=== PATIENT | male | born 1990 | race American Indian/Alaskan Native ===

== ENCOUNTER 2020-02-04 02:41 | Emergency (ER) | payer MEDICARE ==
[2020-02-04 05:14] LABS: BUN/Creatinine Ratio 36; Blood Urea Nitrogen 18 mg/dL (9-20); Calcium 9.9 mg/dL (8.4-10.2); Hemolysis Index 28
[2020-02-04 05:19] LABS: Basophils # (Auto) 0.1 K/mm3 (0.0-0.1); Basophils % (Auto) 0.4 % (0.0-1.8); Eosinophils % (Auto) 0.3 % (0.0-4.3); Hematocrit 42.3 % (35.5-45.6); Hemoglobin 14.1 gm/dl (11.8-15.2); Lymphocytes # (Auto) 1.7 K/mm3 (1.2-5.4); Lymphocytes % (Auto) 11.7 % (13.4-35.0); Mean Corpuscular HGB Conc 33 % (32-34); Mean Corpuscular Volume 96 fl (84-94); Monocytes # (Auto) 1.3 K/mm3 (0.0-0.8); Red Blood Count 4.41 M/mm3 (3.65-5.03); Red Cell Distribution Width 13.3 % (13.2-15.2)
[2020-02-04 05:54] LABS: Platelet Count 118 K/mm3 (140-440)
[2020-02-04 05:56] LABS: Amphetamine Screen,Urine PRESUMPTIVE NEGATIVE; Benzodiazepines Screen,Urine PRESUMPTIVE NEGATIVE; Cannabinoid Screen,Urine PRESUMPTIVE NEGATIVE; Cocaine Screen,Urine PRESUMPTIVE NEGATIVE; Methadone Screen,Urine PRESUMPTIVE NEGATIVE; Opiate Screen,Urine PRESUMPTIVE NEGATIVE
[2020-02-04 05:57] LABS: Bilirubin,Urine NEG (Negative); Blood,Urine NEG (Negative); Color,Urine Yellow (Yellow); Mucus,Urine 3+ /HPF; Urobilinogen,Urine < 2.0 mg/dL (<2.0)
--- NOTE | 2020-02-04 06:16 | Emergency Department Report ---
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 He was found running naked this morning by police. He was placed in a blanket and arrived at this facility otherwise completely naked. At the time of my encounter, the patient is not shivering. He is cooperative. He is unable to provide a lot of specific information. Apparently he has a history of bipolar disorder treated with lithium and seizures previously prescribed divalproic acid. When asked that the patient is taking Keppra EMS is to the affirmative. However I do not think he is in accurate source of any medical history. He is not agitated and cooperative at the time of my evaluation. MD Complaint: other -: unknown Quality: intermittent Improves With: none Context: not taking psychiatric Associated Symptoms: denies other symptoms Treatments Prior to Arrival: none - Related Data Home Medications Medication Instructions Recorded Confirmed Last Taken ALPRAZolam [Xanax TAB] 2 mg PO DAILY 08/12/14 08/12/14 08/11/14 2 MG Folic Acid [Folvite] 1 mg PO DAILY 08/12/14 08/12/14 08/11/14 1 MG [employer] Carbonate [[employer] 450 mg PO DAILY 08/12/14 08/12/14 08/11/14 Carbonate ER] 450 MG Trazodone HCl [traZODone] 50 mg PO DAILY 08/12/14 08/12/14 08/11/14 50 MG Previous Rx's Medication Instructions Recorded Last Taken Type Divalproex Dr [Depakote Dr] 250 mg PO DAILY #60 tablet 08/12/14 Unknown Rx Zolpidem [Ambien] 5 mg PO QHS PRN #7 tablet 09/11/14 Unknown Rx Ibuprofen [Motrin 800 MG tab] 800 mg PO Q8HR PRN #30 tablet 10/22/14 Unknown Rx Allergies Allergy/AdvReac Type Severity Reaction Status Date / Time No Known Allergies Allergy Unverified 09/30/13 17:10 ED Review of Systems ROS: Stated complaint: CONFUSION Other details as noted in HPI Constitutional: denies: chills, fever Eyes: denies: eye pain, vision change ENT: denies: ear pain, throat pain Respiratory: denies: cough, shortness of breath Cardiovascular: denies: chest pain, palpitations Endocrine: no symptoms reported Gastrointestinal: denies: abdominal pain, nausea, diarrhea Genitourinary: denies: urgency, dysuria Musculoskeletal: denies: back pain, arthralgia Skin: denies: rash, lesions Neurological: denies: headache, weakness Psychiatric: as per HPI Hematological/Lymphatic: denies: easy bleeding, easy bruising ED Past Medical Hx - Past Medical History Previous Medical History?: Yes Hx Headaches / Migraines: Yes Hx Seizures: Yes Hx Psychiatric Treatment: Yes (bipolar) Additional medical history: TBI - Surgical History Additional Surgical History: brain surgery - Social History Smoking Status: Unknown if ever smoked - Medications Home Medications: Home Medications Medication Instructions Recorded Confirmed Last Taken Type ALPRAZolam [Xanax TAB] 2 mg PO DAILY 08/12/14 08/12/14 08/11/14 History [address] [Depakote Dr] 250 mg PO DAILY #60 tablet 08/12/14 Unknown Rx Folic Acid [Folvite] 1 mg PO DAILY 08/12/14 08/12/14 08/11/14 History 1 MG [employer] Carbonate [[employer] 450 mg PO DAILY 08/12/14 08/12/14 08/11/14 History Carbonate ER] 450 MG Trazodone HCl [traZODone] 50 mg PO DAILY 08/12/14 08/12/14 08/11/14 History 50 MG Zolpidem [Ambien] 5 mg PO QHS PRN #7 tablet 09/11/14 Unknown Rx Ibuprofen [Motrin 800 MG tab] 800 mg PO Q8HR PRN #30 tablet 10/22/14 Unknown Rx ED Physical Exam - General Limitations: Physical Limitation General appearance: alert, in no apparent distress - Head Head exam: Present: normocephalic, other (Previous craniotomy well-healed) - Eye Eye exam: Present: normal appearance, PERRL, EOMI. Absent: scleral icterus - ENT ENT exam: Present: mucous membranes moist - Neck Neck exam: Present: normal inspection. Absent: tenderness, meningismus - Respiratory Respiratory exam: Present: normal lung sounds bilaterally. Absent: respiratory distress - Cardiovascular Cardiovascular Exam: Present: regular rate, normal rhythm. Absent: systolic murmur, diastolic murmur, rubs, gallop - GI/Abdominal GI/Abdominal exam: Present: soft, normal bowel sounds. Absent: distended, tenderness, guarding, rebound - Rectal Rectal exam: Present: deferred - Extremities Exam Extremities exam: Present: normal inspection - Back Exam Back exam: Present: normal inspection - Neurological Exam Neurological exam: Present: alert, oriented X3, CN II-XII intact. Absent: motor sensory deficit - Psychiatric Psychiatric exam: Present: normal affect, normal mood - Skin Skin exam: Present: warm, dry, intact, normal color. Absent: rash ED Course Vital Signs 02/04/20 02/04/20 02/04/20 03:06 03:18 08:17 Temperature 97.5 F L 98.0 F Pulse Rate 85 68 Respiratory 18 18 20 Rate Blood Pressure 111/63 120/76 [Left] O2 Sat by Pulse 98 98 100 Oximetry - Reevaluation(s) Reevaluation #1: The patient was placed under 1013. Thus far he has not required any chemical sedation. He was placed back on his divalproic acid. I will defer reinitiation of lithium and/or other psychiatric medications to appropriate staff. Mental health consult is yet pending. I assume the patient will be placed in a psychiatric facility. Chest x-ray and CT of the head showed nothing acute. A Covid PCR was obtained as this appears to be frequently required by receiving facilities. There is no clinical suspicion of Covid infection. 02/04/20 14:30 ED Medical Decision Making - Lab Data Result diagrams: 02/04/20 04:02 02/04/20 04:02 Laboratory Results - last 24 hr 02/04/20 02/04/20 02/04/20 04:02 04:02 04:02 WBC RBC Hgb Hct MCV MCH MCHC RDW Plt Count Lymph % (Auto) [place] % (Auto) Eos % (Auto) Baso % (Auto) Lymph # (Auto) [place] # (Auto) Eos # (Auto) Baso # (Auto) Seg Neutrophils % Seg Neutrophils # Sodium 142 Potassium 3.9 Chloride TNR Carbon Dioxide 29 Anion Gap 14 BUN 18 Creatinine 0.5 L Estimated GFR > 60 BUN/Creatinine Ratio 36 Glucose 88 Calcium 9.9 Urine Color Urine Turbidity Urine pH Ur Specific [place] Urine Protein Urine Glucose (UA) Urine Ketones Urine Blood Urine Nitrite Urine Bilirubin Urine Urobilinogen Ur Leukocyte Esterase Urine WBC (Auto) Urine RBC (Auto) Urine Mucus Salicylates < 0.3 L Urine Opiates Screen Urine Methadone Screen Acetaminophen 5.0 L Ur Barbiturates Screen Ur Phencyclidine Scrn Ur Amphetamines Screen U Benzodiazepines Scrn Urine Cocaine Screen U Marijuana (THC) Screen Drugs of Abuse Note Plasma/Serum Alcohol 02/04/20 02/04/20 02/04/20 04:02 04:02 05:40 WBC 14.6 H RBC 4.41 Hgb 14.1 Hct 42.3 MCV 96 H MCH 32 MCHC 33 RDW 13.3 Plt Count 118 L Lymph % (Auto) 11.7 L [place] % (Auto) 9.0 H Eos % (Auto) 0.3 Baso % (Auto) 0.4 Lymph # (Auto) 1.7 [place] # (Auto) 1.3 H Eos # (Auto) 0.0 Baso # (Auto) 0.1 Seg Neutrophils % 78.6 H Seg Neutrophils # 11.5 H Sodium Potassium Chloride Carbon Dioxide Anion Gap BUN Creatinine Estimated GFR BUN/Creatinine Ratio Glucose Calcium Urine Color Yellow Urine Turbidity Clear Urine pH 6.0 Ur Specific [place] 1.026 Urine Protein 30 mg/dl Urine Glucose (UA) Neg Urine Ketones Tr Urine Blood Neg Urine Nitrite Neg Urine Bilirubin Neg Urine Urobilinogen < 2.0 Ur Leukocyte Esterase Neg Urine WBC (Auto) 1.0 Urine RBC (Auto) 2.0 Urine Mucus 3+ Salicylates Urine Opiates Screen Urine Methadone Screen Acetaminophen Ur Barbiturates Screen Ur Phencyclidine Scrn Ur Amphetamines Screen U Benzodiazepines Scrn Urine Cocaine Screen U Marijuana (THC) Screen Drugs of Abuse Note Plasma/Serum Alcohol < 0.01 02/04/20 05:40 WBC RBC Hgb Hct MCV MCH MCHC RDW Plt Count Lymph % (Auto) [place] % (Auto) Eos % (Auto) Baso % (Auto) Lymph # (Auto) [place] # (Auto) Eos # (Auto) Baso # (Auto) Seg Neutrophils % Seg Neutrophils # Sodium Potassium Chloride Carbon Dioxide Anion Gap BUN Creatinine Estimated GFR BUN/Creatinine Ratio Glucose Calcium Urine Color Urine Turbidity Urine pH Ur Specific [place] Urine Protein Urine Glucose (UA) Urine Ketones Urine Blood Urine Nitrite Urine Bilirubin Urine Urobilinogen Ur Leukocyte Esterase Urine WBC (Auto) Urine RBC (Auto) Urine Mucus Salicylates Urine Opiates Screen Presumptive negative Urine Methadone Screen Presumptive negative Acetaminophen Ur Barbiturates Screen Presumptive negative Ur Phencyclidine Scrn Presumptive negative Ur Amphetamines Screen Presumptive negative U Benzodiazepines Scrn Presumptive negative Urine Cocaine Screen Presumptive negative U Marijuana (THC) Screen Presumptive negative Drugs of Abuse Note Disclamer Plasma/Serum Alcohol - Radiology Data Radiology results: report reviewed, image reviewed (Chest x-ray and CT of the head showed nothing acute.) Critical care attestation.: If time is entered above; I have spent that time in minutes in the direct care of this critically ill patient, excluding procedure time. ED Disposition Clinical Impression: Acute psychosis, Medical clearance for psychiatric admission Disposition: [id number]/TX-65 PSY HOSP/PSY UNIT Is pt being admited?: No Does the pt Need Aspirin: No Condition: Stable Referrals: PRIMARY CARE [Primary Care Provider] - 3-5 Days Time of Disposition: 14:32
--- NOTE | 2020-02-04 06:59 | XRay Report ---
CHEST 1 VIEW INDICATION: JACQUES. COMPARISON: None. FINDINGS: Support devices: None. Heart: Normal. Lungs/Pleura: No acute pulmonary or pleural findings. Shunt catheter courses over the left chest. Catheter fragment is seen in the right neck. IMPRESSION: 1. No acute findings. Signer Name: Jackson Ruiz MD Signed: 02/04/2020 6:54 AM Workstation Name: [id number]
[2020-02-04] MEDS ORDERED: ZIPRASIDONE MESYLATE 20 MG VIAL IM PRN (07:11)
[2020-02-04] MEDS ORDERED: ACETAMINOPHEN 325 MG TAB PO PRN (07:12)
[2020-02-04] MEDS ORDERED: MAGNESIUM HYDROXIDE (MOM) ORAL LIQD UDC PO PRN (07:12)
[2020-02-04] MEDS ORDERED: ALUM-MAG HYDROXIDE-SIMETHICONE 200-200-20MG/5ML ORAL LIQD 30 ML PO PRN (07:12)
--- NOTE | 2020-02-04 08:00 | Cat Scan Report ---
CT HEAD WITHOUT CONTRAST INDICATION : altered mental status with GEOCHEMIST shunt. TECHNIQUE: Axial imaging performed from the skull apex through the skull base without the use of con trast. Sagittal and coronal reformatted images. All CT scans at this location are performed using C T dose reduction for ALARA by means of automated exposure control. COMPARISON: None at this facility FINDINGS: Parenchyma: No acute parenchymal abnormality or intracranial hemorrhage is identified. Moderate to l arge area of encephalomalacia is identified throughout the left frontal lobe. 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 Please correlate with the patient's clinical history. Ventricles: Ventricular size is within normal limits. A right parietal ventricular catheter and left parietal ventriculoperitoneal shunt are identified. Bones: No acute osseous abnormality. Left frontal craniotomy changes are noted. Sinuses: Sinuses and mastoid air cells are clear. Soft tissues: Soft tissues including the orbits appear normal. IMPRESSION: No acute abnormality. Chronic or congenital findings as described. Signer Name: Mic Wills Jr, MD Signed: 02/04/2020 7:55 AM Workstation Name: [id number]
--- NOTE | 2020-02-04 10:26 | Consultation ---
History of Present Illness - Reason for Consult Consult date: 02/04/20 Reason for consult: bizarre behavior - History of Present Psychiatric Illness Valentino Fontana is a 29y/o male patient who was brought in by the police after being found running naked. During my interview with the patient, he is lying down. He is awake, but slow to respond. He is oriented x 3. He is a poor historian. He is hallucinating. The patient says he "sees things and have nightmares when I close my eyes." He then squints his eyes. The patient is pointing out in the hallway with his eyes bucked. He says "my father is in that room with the pink." He then points quickly at the corner of the wall and says "look, do you see that? It's my father with an actor." When asked about any psych history in the past the patient replies "I don't know." He denies any illicit drug use, alcohol or nicotine. The patient says "doesn't know if I takes any psych meds." He denies SI/HI at present. The patient also denies a past suicide attempt. 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 Family Psychiatric History: None reported or documented SOCIAL HISTORY Marital Status: Single Living Arrangements: "I don't know where I live." Employment Status: Disabled Access to guns/weapons: Denies Education: History of Abuse: Denies Legal History: Denies REVIEW OF SYSTEMS Constitutional: Negative for weight loss ENT: Negative for stridor Respiratory: Negative for cough or hemoptysis All other systems reviewed and are negative MENTAL STATUS EXAMINATION General Appearance and Behavior: Age appropriate, wearing appropriate clothes, poor eye contact Cooperation: Cooperative, participating Psychomotor Behavior: Psychomotor normal Mood: "scary" Affect and affective range: Restricted Thought Process: illogical Thought Content: Hallucinations Speech: Normal rate, volume and rhythm Suicidal Ideation: Denies Homicidal Ideation: Denies HI Hallucinations: Auditory, Visual Impulse Control: Limited Insight and Judgment: Limited insight and judgment Memory/Cognition: Impaired Attention: Limited Orientation: Alert Assessment and Plan (1)Bipolar Disorder, with Psychotic Features Current Visit: Yes Status: Acute Treatment Plan [address] 250mg po BID Start Risperidone 0.25mg po BID po daily Start Trazodone 50mg po qhs Sitter: Defer to primary Medical: Per primary Disposition: Recommend acute inpatient psychiatric treatment once medically clear. Will follow. Thank you for this consult. Medications and Allergies Allergies Allergy/AdvReac Type Severity Reaction Status Date / Time No Known Allergies Allergy Unverified 09/30/13 17:10 Home Medications Medication Instructions Recorded Confirmed Last Taken Type ALPRAZolam [Xanax TAB] 2 mg PO DAILY 08/12/14 08/12/14 08/11/14 History [address] [Depakote Dr] 250 mg PO DAILY #60 tablet 08/12/14 Unknown Rx Folic Acid [Folvite] 1 mg PO DAILY 08/12/14 08/12/14 08/11/14 History 1 MG [place] Carbonate [[employer] 450 mg PO DAILY 08/12/14 08/12/14 08/11/14 History Carbonate ER] 450 MG Trazodone HCl [traZODone] 50 mg PO DAILY 08/12/14 08/12/14 08/11/14 History 50 MG Zolpidem [Ambien] 5 mg PO QHS PRN #7 tablet 09/11/14 Unknown Rx Ibuprofen [Motrin 800 MG tab] 800 mg PO Q8HR PRN #30 tablet 10/22/14 Unknown Rx Active Meds: Active Medications Acetaminophen (Tylenol) 650 mg PO Q4HR PRN PRN Reason: Pain MILD(1-3)/Fever >100.5/[place] Al Hydrox/Mg Hydrox/Simethicone (Alum-Mag Hydrox-Simeth [id number]/5ml) 30 ml PO Q4HR PRN PRN Reason: Indigestion Divalproex Sodium (Depakote Dr) 250 mg PO BID LANCE Magnesium Hydroxide (Milk Of Magnesia) 30 ml PO Q12HR PRN PRN Reason: Constipation Ziprasidone (Geodon) 10 mg IM Q12H PRN PRN Reason: Agitation Mental Status Exam - Vital signs Last Vital Signs Temp 98.0 F 11/25/20 08:17 Pulse 68 02/04/20 08:17 Resp 20 02/04/20 08:17 BP 120/76 02/04/20 08:17 Pulse Ox 100 02/04/20 08:17 Results Result Diagrams: 02/04/20 04:02 02/04/20 04:02 Abnormal lab results 02/04/20 02/04/20 02/04/20 Range/Units 04:02 04:02 04:02 WBC (4.5-11.0) K/mm3 MCV (84-94) fl Plt Count (140-440) K/mm3 Lymph % (Auto) (13.4-35.0) % Towns % (Auto) (0.0-7.3) % [place]s # (Auto) (0.0-0.8) K/mm3 Seg Neutrophils % (40.0-70.0) % Seg Neutrophils # (1.8-7.7) K/mm3 Creatinine 0.5 L (0.8-1.3) mg/dL Salicylates < 0.3 L (2.8-20.0) mg/dL Acetaminophen 5.0 L (10.0-30.0) ug/mL 02/04/20 Range/Units 04:02 WBC 14.6 H (4.5-11.0) K/mm3 MCV 96 H (84-94) fl Plt Count 118 L (140-440) K/mm3 Lymph % (Auto) 11.7 L (13.4-35.0) % Towns % (Auto) 9.0 H (0.0-7.3) % [place]s # (Auto) 1.3 H (0.0-0.8) K/mm3 Seg Neutrophils % 78.6 H (40.0-70.0) % Seg Neutrophils # 11.5 H (1.8-7.7) K/mm3 Creatinine (0.8-1.3) mg/dL Salicylates (2.8-20.0) mg/dL Acetaminophen (10.0-30.0) ug/mL All other labs normal.
[2020-02-04] MEDS: risperiDONE 0.25 MG TAB PO SCH ×2 (10:50→22:04)
[2020-02-04] MEDS: DIVALPROEX DR 250 MG TAB PO SCH ×2 (10:50→22:04)
[2020-02-04] MEDS ORDERED: traZODone 50 MG TAB PO SCH (22:00)
--- NOTE | 2020-02-05 06:12 | Progress Note ---
Subjective - Reason for Consult Consult date: 02/05/20 Reason for consult: inappropriate behavior, hallucinations - Chief Complaint Chief complaint: The patient's medical record was reviewed and the patient's progress was discussed with the nursing staff. The nurse notes states the patient is resting peacefully on recliner watching TV, in no acute distress, ambulated to bathroom independently, and able to verbalize needs. Room appears safe, no indication of SI/HI at this time. During my interview with the patient he is sitting on side of the bed. He is calm and cooperative. He is presenting better today than yesterday. He's smiling. He makes good eye contact. He greets me and tells me "you look spiffy today." He drools at times. The patient says he is from a nursing home. He denies any thoughts of self harm, or thoughts of wanting to harm others. He also denies hallucinations of any kind. When asked about his mood, the patient states, "better, better." The patient gave me permission to call his caregivers. I called Chrystal Bolton and Valentino Uribe, at [phone]. I did not receive an answer but left a generic message. REVIEW OF SYSTEMS Constitutional: Negative for weight loss ENT: Negative for stridor Respiratory: Negative for cough or hemoptysis All other systems reviewed and are negative MENTAL STATUS EXAMINATION General Appearance and Behavior: Age appropriate, wearing appropriate clothes, good eye contact Cooperation: Cooperative, participating Psychomotor Behavior: Psychomotor normal Mood: "better" Affect and affective range: Euthymic Thought Process: logical Thought Content: None Speech: Normal rate, volume and rhythm Suicidal Ideation: Denies Homicidal Ideation: Denies Hallucinations: Denies Impulse Control: Limited Insight and Judgment: Limited insight and judgment Memory/Cognition: Impaired Attention: Limited Orientation: Alert Assessment and Plan (1)Bipolar Disorder, with Psychotic Features Current Visit: Yes Status: Acute Treatment Plan d/c 1013 Please give dose of meds prior to discharge Depakote DR 250mg po BID Risperidone 0.25mg po BID po daily Trazodone 50mg po qhs Sitter: Defer to primary Medical: Per primary Disposition: Do not recommend acute inpatient psychiatric treatment once medically clear. The patient may discharge with caregivers once medically clear. Advised the patient that if suicidal thoughts or tendencies arise or feelings of endangerment he should seek immediate assistance including but not limited to the crisis hotline, 911, ER. The review scheduling coordinator to give the patient outpatient resources for psychiatry Will sign off. Thank you for this consult. Mental Status Exam - Vital signs Last Vital Signs Temp 97.6 F 02/05/20 02:03 Pulse 92 H 02/05/20 02:03 Resp 18 02/05/20 02:03 BP 126/81 02/05/20 02:03 Pulse Ox 98 02/05/20 02:03
[2020-02-05 08:12] VITALS: BP 133/86
[2020-02-05] MEDS: DIVALPROEX DR 250 MG TAB PO SCH (09:39)
[2020-02-05] MEDS: risperiDONE 0.25 MG TAB PO SCH (09:39)
== END 2020-02-05 10:41 | disposition home or self-care (01) ==
LOC: ED 02:41
DX: F23 Brief psychotic disorder (principal); G43.909 Migraine, unspecified, not intractable, without status migrainosus; G40.909 Epilepsy, unspecified, not intractable, without status epilepticus; Z79.899 Other long term (current) drug therapy
CPT/HCPCS: 36415; 70450; 71045; 80048; 80307; 81001; 85025; 99285; U0003; 80320; G0480